=== PATIENT | female | born 1955 | race Caucasian/White ===

== ENCOUNTER → 2021-07-29 | Outpatient (CLI) | payer MEDICARE ==
[2021-07-29 13:48] VITALS: BP 125/78; PULSE 80; TEMP 98.2; BMI 33.9
--- NOTE | 2021-07-29 14:00 | P.BASOAP ---
Subjective Progress Note Date: 07/29/21 Principal diagnosis: morbid obesity 65-year-old female known to our service. Patient underwent laparoscopic band placement 2001 and sleeve gastrectomy 2012. Patient has had some intermittent episodes of heartburn and regurgitation. She thinks that over the years she probably has had a few episodes where the regurgitation related to aspiration. Patient was being evaluated for some respiratory issues in May and found to have a moderate sized hiatal hernia. patient is not aware of having had a hiatal hernia previously. Over the last 1 week she has had 3 distinct episodes of nausea that led to dry heaves. No dysphagia. Takes Prevacid once daily. Objective - Vital Signs Vital signs: Vital Signs Temp 98.2 F 07/29/21 13:45 Pulse 80 07/29/21 13:45 Resp BP 125/78 07/29/21 13:45 Pulse Ox Intake & Output 07/28/21 07/29/21 07/29/21 18:59 06:59 18:59 Weight 101.151 kg - Exam Abdomen: Soft, nontender, nondistended Assessment/Plan (1) Morbid obesity Narrative/Plan: 65-year-old female with GERD, regurgitation, nausea. Recent CT chest showing moderate sized hiatal hernia. We'll proceed with EGD to evaluate. Continue antiacids for now. Plan: Date: 07/29/21 Initial Weight: Initial BMI: Current Weight: 101.151 kg Current BMI: 33.9 Type of Surgery: Total Volume in Band: Previous Volume: Volume Removed: Volume Added: Band Size:
== END ==
LOC: BARWHC3 13:31
PROVIDERS: ATTEND Surgery
DX: E66.01 Morbid (severe) obesity due to excess calories (principal); K44.9 Diaphragmatic hernia without obstruction or gangrene; Z98.84 Bariatric surgery status; Z68.33 Body mass index [BMI] 33.0-33.9, adult; Z88.1 Allergy status to other antibiotic agents
CPT/HCPCS: 99211

== ENCOUNTER 2021-09-02 09:53 | Day surgery (SDC) | payer MEDICARE ==
[2021-08-14 12:06] VITALS: BMI 33.9
[~2021-09-02 09:53] MED LIST: LACTATED RINGERS 1,000 ML IV SCH; LIDOCAINE 1% (10MG/ML) FOR IV START INTRADERMA PRN
[2021-09-02 10:21] VITALS: TEMP 97.2
[2021-09-02] MEDS ORDERED: PROPOFOL 10 MG/ML 20 ML VIAL IV ONE (10:26)
[2021-09-02] MEDS ORDERED: LIDOCAINE 1% INJ 10MG/ML (20 ML MDV) ONE (10:26)
--- NOTE | 2021-09-02 10:31 | P.GSHP ---
History of Present Illness H&P Date: 09/02/21 Chief Complaint: GERD 66-year-old female here today for EGD. Patient with history of regurgitation with occasional episodes of vomiting. Recently found to have a moderate-sized hiatal hernia on testing. Patient with history of previous lap band and subsequent sleeve gastrectomy. Takes Prevacid daily. Past Medical History Past Medical History: GERD/Reflux, Hypertension, Sleep Apnea/CPAP/BIPAP Additional Past Medical History / Comment(s): USES CPAP MACHINE History of Any Multi-Drug Resistant Organisms: None Reported Past Surgical History: Bariatric Surgery, Cholecystectomy, Tonsillectomy Additional Past Surgical History / Comment(s): lap band ; lap band removal. sleeve gastrectomy [address] [facility]. CYST REMOVED FROM RT WRIST. COLONOSCOPY/EGD Past Anesthesia/Blood Transfusion Reactions: Postoperative Nausea & Vomiting (PONV) Smoking Status: Never smoker - Past Family History Father Family Medical History: Cancer Medications and Allergies Home Medications Medication Instructions Recorded Confirmed Type Aspirin [[place] Aspirin EC] 81 mg PO DAILY 07/29/21 09/02/21 History Carvedilol [Coreg] 3.125 mg PO DAILY 07/29/21 08/14/21 History Cholecalciferol (Vitamin D3) 125 mcg PO DAILY 07/29/21 08/14/21 History [Vitamin D3 (125 MCG = 5,000 IU)] Citalopram Hydrobromide 40 mg PO DAILY 07/29/21 08/14/21 History Lansoprazole [Prevacid] 30 mg PO DAILY 07/29/21 08/14/21 History Loratadine [Claritin] 10 mg PO DAILY 07/29/21 08/14/21 History Losartan [Cozaar] 50 mg PO DAILY 07/29/21 08/14/21 History Allergies Allergy/AdvReac Type Severity Reaction Status Date / Time levofloxacin [From Levaquin] Allergy Swelling Verified 09/02/21 10:13 Surgical - Exam Vital Signs Temp Pulse Resp BP Pulse Ox 97.2 F L 60 18 156/75 97 09/02/21 10:16 09/02/21 10:16 09/02/21 10:16 09/02/21 10:16 09/02/21 10:16 Physical exam: General: Well-developed, well-nourished HEENT: Normocephalic, sclerae nonicteric Abdomen: Nontender, nondistended Extremities: No edema Neuro: Alert and oriented Assessment and Plan (1) GERD (gastroesophageal reflux disease) Narrative/Plan: Per seed with upper endoscopy at this time. Current Visit: Yes Status: Acute Code(s): K21.9 - GASTRO-ESOPHAGEAL REFLUX DISEASE WITHOUT ESOPHAGITIS SNOMED Code(s): 560830302
--- NOTE | 2021-09-02 10:40 | P.PCN ---
Date of Procedure: 09/02/21 Procedure(s) Performed: Preoperative Dx: GERD, regurgitation Postoperative Dx: Gastritis, possible hiatal hernia Procedure: EGD with Bx Anesthesia: Sedation Endoscopist: Dr. Mancilla Specimens: Antrum Endoscopic Procedure: The patient was on the endoscopy table in the left decubitus position. The Olympus gastroscope was inserted into the oropharynx and passed under direct visualization to the region of the third portion of the duodenum. From that point the scope was slowly withdrawn inspecting all surf aces carefully. There were no neoplastic inflammatory or polypoid lesions throughout the duodenum. The pylorus was widely patent. The stomach was carefully inspected. There was mild gastritis present. A biopsy of the antrum took place to rule out H. pylori. Retroflexion was not performed because of the previous sleeve gastrectomy. The sleeve gastrectomy was well healed. The GE junction was present at 36 cm. I could not visualize a definite hiatal hernia however the location of the GE junction suggest the possibility of a hiatal hernia. The entirety of the esophagus appear normal. The patient was then taken to the recovery room in stable condition per anesthesia guidelines. Recommendations: Await biopsy results. Patient may require CT chest if symptoms of regurgitation or vomiting persists. Although she states she had previous workup for some pulmonary issues and may have had a CT of the chest elsewhere. It is not on our system. Continue daily antiacid therapy.
[2021-09-02 11:09] VITALS: BP 124/66; PULSE 57; RESP 18
== END 2021-09-02 11:24 | disposition home or self-care (01) ==
LOC: ORWHC2ENDO 09:53
PROVIDERS: ATTEND Surgery
DX: K29.70 Gastritis, unspecified, without bleeding (principal); I10 Essential (primary) hypertension; G47.33 Obstructive sleep apnea (adult) (pediatric); K21.9 Gastro-esophageal reflux disease without esophagitis; Z98.84 Bariatric surgery status
CPT/HCPCS: 43239; 88305; J2001; J2704

== ENCOUNTER → 2021-09-16 | Outpatient (CLI) | payer MEDICARE ==
[2021-09-16 14:10] VITALS: BP 162/87; PULSE 69; TEMP 97; BMI 33.0
--- NOTE | 2021-09-16 14:11 | P.BASOAP ---
Subjective Progress Note Date: 09/16/21 Principal diagnosis: Morbid obesity Patient returns for recheck after recent upper endoscopy. EGD showed no evidence of any esophagitis. There may be a small recurrent hiatal hernia. Difficult to say because of the anatomy with the sleeve. Overall seems to be doing well. She has lost 18 pounds since the beginning of the year and thinks her improvement in acid reflux and regurgitation is because of her weight loss. Remains on antiacids daily. Objective - Vital Signs Vital signs: Intake & Output 09/15/21 09/16/21 09/16/21 18:59 06:59 18:59 Weight 98.43 kg - Exam Abdomen: Soft, nontender, nondistended Assessment/Plan (1) GERD (gastroesophageal reflux disease) Narrative/Plan: Patient doing well at this time. Continue antiacids daily. No plans for conversion to bypass at this time. Patient will try to bring the CAT scan of her chest that she had performed in May at [facility] for me to davey miller. Follow-up with any further issues. Plan: Date: Initial Weight: Initial BMI: Current Weight: 98.43 kg Current BMI: Type of Surgery: Total Volume in Band: Previous Volume: Volume Removed: Volume Added: Band Size:
== END ==
LOC: BARWHC3 14:01
PROVIDERS: ATTEND Surgery
DX: E66.01 Morbid (severe) obesity due to excess calories (principal); K21.9 Gastro-esophageal reflux disease without esophagitis; Z88.1 Allergy status to other antibiotic agents; Z68.33 Body mass index [BMI] 33.0-33.9, adult
CPT/HCPCS: 99211